=== PATIENT | male | born 1975 | race Caucasian/White ===

== ENCOUNTER 2016-10-14 14:34 | Emergency (ER) | payer OTHER | END 2016-10-14 15:21 | disposition home or self-care (01) | LOC: ER 14:34 | DX: M79.674 Pain in right toe(s) (principal); Z88.1 Allergy status to other antibiotic agents; Z79.899 Other long term (current) drug therapy; Z79.82 Long term (current) use of aspirin | CPT/HCPCS: 96372; 99282-25 ==

== ENCOUNTER 2016-10-21 16:47 | Emergency (ER) | payer OTHER | END 2016-10-21 17:45 | disposition home or self-care (01) | LOC: ER 16:47 | DX: M79.674 Pain in right toe(s) (principal); M79.675 Pain in left toe(s); M10.9 Gout, unspecified; Z88.1 Allergy status to other antibiotic agents; Z79.899 Other long term (current) drug therapy | CPT/HCPCS: 96372; 99282-25 ==